=== PATIENT | female | born 1965 | race Caucasian/White ===

== ENCOUNTER 2018-04-07 16:43 | Emergency (ER) | payer OTHER ==
[2018-04-07] MEDS: SOD CHLORIDE 0.9% 1,000 ML IV (17:11)
[2018-04-07] MEDS: ONDANSETRON 4 MG INJ IV (17:11)
[2018-04-07] MEDS: PANTOPRAZOLE 40 MG INJ IV (17:24)
[2018-04-07] MEDS: METOCLOPRAMIDE 10 MG INJ IV (17:52)
[2018-04-07] MEDS: LIDOCAINE/MYLANTA 40 ML BTL PO (18:38)
== END 2018-04-07 19:30 | disposition home or self-care (01) ==
LOC: E/R 16:43
DX: R11.2 Nausea with vomiting, unspecified (principal); T39.2X5A Adverse effect of pyrazolone derivatives, initial encounter
CPT/HCPCS: 96374; 96375; 99284-25